=== PATIENT | female | born 1950 | race Caucasian/White ===

== ENCOUNTER → 2018-04-22 15:02 | Outpatient (REF) | payer MEDICARE, SELFPAY ==
[2018-04-22 19:04] LABS: ALT 31 U/L (12-78); AST 22 U/L (15-37); Albumin 3.9 g/dL (3.4-5.0); Alkaline Phosphatase 69 U/L (46-116); Anion Gap 10.6 mmol/L (3-11); BUN 19 mg/dL (7-18); Bilirubin, Total 0.4 mg/dL (0.2-1.0); CO2 23.4 mmol/L (21.0-32.0); CREATININE 0.88 mg/dL (0.55-1.02); Calcium 9.2 mg/dL (8.5-10.1); Chloride 103 mmol/L (98-107); Glucose 84 mg/dL (70-100); Potassium 4.4 mmol/L (3.5-5.1); Sodium 137 mmol/L (136-145); Total Protein 7.3 g/dL (6.4-8.2)
== END ==
LOC: NCHCN 15:02
PROVIDERS: PCP Nurse Practitioner Family; Visit Provider Nurse Practitioner Family
DX: R94.4 Abnormal results of kidney function studies (principal)
CPT/HCPCS: 80053

== ENCOUNTER 2019-04-22 09:26 | Outpatient (CLI) | payer MEDICARE, SELFPAY ==
[2019-04-22 10:43] LABS: Anion Gap 8.8 mmol/L (3-11); BUN 21 mg/dL (7-18); CO2 26.2 mmol/L (21.0-32.0); CREATININE 0.96 mg/dL (0.55-1.02); Calcium 8.9 mg/dL (8.5-10.1); Chloride 103 mmol/L (98-107); Estimated GFR 57.63 (mL/min/1.73m2); Glucose 87 mg/dL (70-100); Potassium 4.4 mmol/L (3.5-5.1); Sodium 138 mmol/L (136-145)
== END 2019-04-22 09:46 ==
PROVIDERS: PCP Family Medicine; Visit Provider Family Medicine
DX: I10 Essential (primary) hypertension (principal)
CPT/HCPCS: 36415; 80048

== ENCOUNTER 2019-07-29 08:10 | Outpatient (REF) | payer MEDICARE, SELFPAY ==
[2019-07-29 15:35] LABS: Calculated LDL 97 mg/dL; Cholesterol 196 mg/dL (50-200); HDL Cholesterol 77 mg/dL (40-60); Triglyceride 112 mg/dL (30-150)
== END 2019-07-29 08:30 ==
LOC: NCHCN 08:10
PROVIDERS: PCP Family Medicine; Visit Provider Family Medicine
DX: E78.5 Hyperlipidemia, unspecified (principal)
CPT/HCPCS: 80061

== ENCOUNTER 2020-04-26 08:45 | Outpatient (REF) | payer MEDICARE, SELFPAY ==
[2020-04-26 21:47] LABS: Anion Gap 6.8 mmol/L (3-11); BUN 13 mg/dL (7-18); CO2 29.2 mmol/L (21.0-32.0); CREATININE 0.83 mg/dL (0.55-1.02); Calcium 8.9 mg/dL (8.5-10.1); Chloride 105 mmol/L (98-107); Glucose 81 mg/dL (74-106); Potassium 4.5 mmol/L (3.5-5.1); Sodium 141 mmol/L (136-145)
== END 2020-04-26 09:05 ==
LOC: NCHCN 08:45
PROVIDERS: PCP Family Medicine; Visit Provider Family Medicine
DX: I10 Essential (primary) hypertension (principal)
CPT/HCPCS: 80048

== ENCOUNTER 2021-05-05 17:54 | Outpatient (REF) | payer MEDICARE, SELFPAY ==
[2021-05-05 14:51] LABS: Anion Gap 7.4 mmol/L (3-11); BUN 21 mg/dL (7-18); CO2 27.6 mmol/L (21.0-32.0); CREATININE 0.9 mg/dL (0.55-1.02); Chloride 105 mmol/L (98-107); Glucose 81 mg/dL (74-106); Potassium 4.7 mmol/L (3.5-5.1); Sodium 140 mmol/L (136-145)
== END 2021-05-05 17:55 | disposition home or self-care (01) ==
LOC: NCHCN 17:54
PROVIDERS: PCP Family Medicine; Visit Provider Family Medicine
DX: I10 Essential (primary) hypertension (principal)
CPT/HCPCS: 80048

== ENCOUNTER 2021-08-09 15:52 | Outpatient (REF) | payer MEDICARE, SELFPAY ==
[2021-08-11 14:55] LABS: COVID-19 RT-PCR UVMMC Result Negative (Negative)
== END 2021-08-09 15:53 | disposition home or self-care (01) ==
LOC: LBN 15:52
PROVIDERS: PCP Family Medicine; Visit Provider Family Medicine
DX: Z20.822 Contact with and (suspected) exposure to COVID-19 (principal); R09.81 Nasal congestion
CPT/HCPCS: U0003

== ENCOUNTER 2021-12-13 11:53 | Outpatient (REF) | payer MEDICARE, SELFPAY ==
[2021-12-15 12:56] LABS: COVID-19 RT-PCR UVMMC Result Negative (Negative)
== END 2021-12-13 11:54 | disposition home or self-care (01) ==
LOC: NCHCN 11:53
PROVIDERS: PCP Family Medicine; Visit Provider Family Medicine
DX: Z20.822 Contact with and (suspected) exposure to COVID-19 (principal); J01.90 Acute sinusitis, unspecified
CPT/HCPCS: U0003

== ENCOUNTER → 2022-01-10 16:30 | Outpatient (CLI) | payer MEDICARE, SELFPAY ==
--- NOTE | 2022-01-10 14:57 | DI.RAD_ITS ---
Exam(s) XR CHEST 2V PA LATERAL EXAM: XR CHEST 2V PA LATERAL CLINICAL HISTORY: SHORTNESS OF BREATH - R06.02 TECHNIQUE: 2D digital imaging was performed of the chest. Two images were obtained. PA and lateral views were obtained. COMPARISON: CR CHEST 2 VIEWS PA,LAT from 03/26/2017 FINDINGS: MEDIASTINUM: Normal. HEART: Normal. PULMONARY VASCULATURE: Normal. LUNGS: Clear. PLEURAL SPACE: No pleural effusion or pneumothorax. BONE:Within normal limits for the patient's age. OTHER FINDINGS:Normal. IMPRESSION: No acute pulmonary findings. DATA REPOSITORY: RADIATION DOSE DELIVERED:
== END ==
PROVIDERS: PCP Family Medicine; Visit Provider Family Medicine
DX: R06.02 Shortness of breath (principal)
CPT/HCPCS: 71046

== ENCOUNTER 2022-04-24 11:14 | Outpatient (REF) | payer MEDICARE, SELFPAY ==
[2022-04-24 15:40] LABS: Anion Gap 6.6 mmol/L (3-11); BUN 22 mg/dL (7-18); CO2 26.4 mmol/L (21.0-32.0); CREATININE 0.9 mg/dL (0.55-1.02); Calcium 9.1 mg/dL (8.5-10.1); Chloride 107 mmol/L (98-107); Glucose 94 mg/dL (74-106); Potassium 4.9 mmol/L (3.5-5.1); Sodium 140 mmol/L (136-145)
== END 2022-04-24 11:15 | disposition home or self-care (01) ==
LOC: NCHCN 11:14
PROVIDERS: PCP Family Medicine; Visit Provider Family Medicine
DX: I10 Essential (primary) hypertension (principal)
CPT/HCPCS: 80048

== ENCOUNTER 2022-10-18 18:52 | Outpatient (REF) | payer MEDICARE, SELFPAY ==
[2022-10-20 09:10] LABS: IgE <2 IU/mL (<158)
== END 2022-10-18 18:53 | disposition home or self-care (01) ==
LOC: LBN 18:52
PROVIDERS: PCP Family Medicine; Visit Provider Student in an Organized Health Care Education/Training Program
DX: J45.909 Unspecified asthma, uncomplicated (principal)
CPT/HCPCS: 82785; 85025

== ENCOUNTER 2022-10-24 12:08 | Outpatient (CLI) | payer MEDICARE, SELFPAY ==
[2022-10-24 12:03] LABS: Abs Immature Grans 0.02 10^3/uL (0.0-0.06); Absolute Basophil Count 0.05 10^3/uL (0.0-0.2); Absolute Eosinophil Count 0.27 10^3/uL (0.0-0.7); Absolute Lymphocyte Count 2.76 10^3/uL (1.2-3.4); Absolute Monocyte Count 0.52 10^3/uL (0.1-0.8); Absolute Neutrophil Count 3.62 10^3/uL (1.2-6.7); Basophils % 0.7; Eosinophils % 3.7; HCT 43.1 % (36.0-46.0); HGB 14.4 g/dL (11.2-15.7); Immature Grans % 0.3; Lymphocytes % 38.1; MCH 29.8 pg (27.0-33.0); MCHC 33.4 % (32.0-36.0); MCV 89 fL (80-95); MPV 9.6 fL (8.0-11.0); Monocytes % 7.2; Platelet Count 253 10^3/uL (130-400); RBC 4.83 10^6/uL (3.93-5.22); RDW 13.1 % (11.7-14.6); WBC 7.24 10^3/uL (4.4-10.8)
== END 2022-10-24 12:09 | disposition home or self-care (01) ==
PROVIDERS: PCP Family Medicine; Visit Provider Student in an Organized Health Care Education/Training Program
DX: J45.41 Moderate persistent asthma with (acute) exacerbation (principal)
CPT/HCPCS: 36415; 85025

== ENCOUNTER 2022-10-27 02:21 | Outpatient (CLI) | payer MEDICARE, SELFPAY ==
[2022-10-27] MEDS: Albuterol HFA 18 GM 200 PUFF INH IH (14:44)
[2022-10-27] MEDS: Inhaler, Assist Device 1 EACH MC (14:45)
--- NOTE | 2022-10-30 14:23 | W.PFT ---
Date of service: 10/27/22 Time of Service: 13:03 Pulmonary Function Test Result Requesting Provider Ayaka Indications: Asthma Interpretation Spirometry: There is no airflow limitation. There is no significant bronchodilator response. Lung Volumes: Normal lung volumes. Diffusion Capacity: Normal diffusion Airway Pressure: Normal airways resistance Impression Normal pulmonary function testing. Clinical Correlation therefore is recommended.
== END 2022-10-27 02:22 | disposition home or self-care (01) ==
LOC: RT 02:21
PROVIDERS: PCP Family Medicine; Visit Provider Student in an Organized Health Care Education/Training Program
DX: J45.41 Moderate persistent asthma with (acute) exacerbation (principal)
CPT/HCPCS: 94060; 94726; 94729

== ENCOUNTER 2022-12-03 07:08 | Emergency (ER) | payer MEDICARE, SELFPAY ==
[2022-12-03 07:12] VITALS: BP 154/79; PULSE 115; RESP 20; TEMP 37.4; O2SAT 98
--- NOTE | 2022-12-03 07:22 | ED.GENADUL_ITS ---
Discharge Plan Disposition Patient Disposition: Home Condition: Stable Discharge Details Clinical Impression: Acute streptococcal pharyngitis Primary Care Provider: Austen Mendez ED Provider: Estefania Valenzuela Home Meds and New Rx's Prescriptions: Continued atorvastatin [Lipitor] 20 mg tablet 20 mg PO QHS budesonide-formoterol [Symbicort] 160-4.5 mcg/actuation HFA aerosol inhaler 1 puff inhalation BID polyethylene glycol 3350 [Miralax] 17 gram/dose powder 17 g PO DAILY PRN trazodone 50 MG tablet 50 mg PO HS lisinopril 20 MG tablet 20 mg PO QAM sertraline 100 MG tablet 100 mg PO BID albuterol sulfate [Ventolin HFA] 8 GM HFA aerosol inhaler 8 g Inhalation PRN multivitamin 1 EACH capsule 1 tab PO QAM Glucosamine Sulf-Chondroitin 1 EACH capsule 1 cap PO QAM celecoxib 200 mg capsule 200 mg PO DAILY Patient Comments: TAKE ONE CAPSULE BY MOUTH EVERY DAY NEEDED FOR PAIN Discharge Instructions Instructions: Pharyngitis (ED), Strep Throat (ED) Additional Instructions: You tested positive for strep throat. You were given a Bicillin antibiotic injection for treatment of your strep throat today. Your COVID and influenza antigen tests today were negative. You can take 500 mg of Tylenol every 4 hours and 400 to 600 mg of ibuprofen every 6 hours as needed for pain or fever. Hold on taking the Celebrex while taking the ibuprofen. Drink plenty of fluids and get plenty of rest. Follow-up with your primary care doctor in 1 week. Return to the emergency department with any worsening or new concerning symptoms such as persistent fevers, worsening sore throat, difficulty swallowing or any other concerns. Discharge Data Discharge Date/Time-TO BE ENTERED AT DEPARTURE: 12/03/22 08:04 Discharge Physician: Estefania Valenzuela Medical Decision Making 72-year-old female presents with sore throat for the past 2 days now also with frontal headache, body aches, chills and difficulty swallowing. Heart rate 115. Oral temp on my assessment 100. She has normal respiratory rate and oxygen saturation. Patient appears uncomfortable but nontoxic. She has bilateral tonsillar and uvular edema and erythema but no evidence of exudates and uvula is midline without obvious evidence of peritonsillar abscess. She does have bilateral anterior cervical and submandibular lymphadenopathy. Lungs clear throughout. Abdomen soft and nontender without hepatosplenomegaly. Rapid strep done by nursing on arrival and POSITIVE. Her POC rapid antigen COVID and influenza tests were negative. History and presentation does appear most likely consistent with strep at this time and do not suspect mononucleosis at this time or indication for COVID or influenza PCR as sore throat is her predominant symptom and strep POSITIVE. She has no evidence of unilateral edema or peritonsillar abscess so I do not see an indication for labs or imaging of the neck at this time. Patient is agreeable with Bicillin injection. We will also give a dose of Tylenol P.O. for pain and fever relief and Decadron P.O. for pain relief. Patient is advised to hold on her Celebrex while taking ibuprofen for fever and pain relief. Advised on importance of increasing fluids and rest. Advised to follow up with the primary care doctor for re-evaluation. Advised to return here immediately if she develops any worsening symptoms including difficulty swallowing, unilateral worsening pain, persistent fevers or any other concerns for reevaluation and consideration for imaging at that time. Medical Records Medical records reviewed: Yes I reviewed the patient's medical records. Lab Data Lab results reviewed: Yes I reviewed the patient's lab results. Labs: Strep test POSITIVE POC rapid COVID and influenza A & B tests NEGATIVE HPI General Mode of arrival: ambulatory . Date/Time Provider Initiated Documentation: 12/03/22 07:20 . Limitations to Documentation: no limitations . Information obtained by: patient . HPI Narrative: Patient is a 72-year-old female with a history of hypertension, hyperlipidemia, asthma, migraines and osteoarthritis presents for sore throat for the past 2 days now also with headache, body aches, chills. Patient states she last took Tylenol for pain relief at 10 PM last night. She states she has felt feverish but has not taken her temperature. She denies any known sick contacts. She states her headache is mainly within her forehead. She denies any ear pain, nasal congestion, runny nose, cough, difficulty breathing, abdominal pain, vomiting or diarrhea. She states she has not taken any ibuprofen because she takes Celebrex. Related Data Home Medications Medication Instructions Recorded Confirmed albuterol sulfate 90 mcg/actuation 8 g inhalation PRN 12/20/13 12/03/22 aerosol inhaler (Ventolin HFA) glucosamine sulfate dipotassium Cl 1 cap PO QAM 12/20/13 12/03/22 500 mg-chondroitin 400 mg capsule (Glucosamine Sulfate 2 KCL-Chondroitin) lisinopril 20 mg tablet 20 mg PO QAM 12/20/13 12/03/22 multivitamin 1 tab PO QAM 12/20/13 12/03/22 sertraline 100 mg tablet 100 mg PO BID 12/20/13 12/03/22 trazodone 50 mg tablet 50 mg PO HS 12/20/13 12/03/22 budesonide-formoterol HFA 160 1 puff inhalation BID 06/13/22 12/03/22 mcg-4.5 mcg/actuation aerosol inhaler (Symbicort) polyethylene glycol 3350 17 17 g PO DAILY PRN 06/13/22 12/03/22 gram/dose oral powder (Miralax) atorvastatin 20 mg tablet (Lipitor) 20 mg PO QHS 10/18/22 12/03/22 celecoxib 200 mg capsule 200 mg PO DAILY 12/03/22 12/03/22 Allergies Allergy/AdvReac Type Severity Reaction Status Date / Time petrolatum,white AdvReac Unknown Verified 12/03/22 07:16 [From Petroleum Jelly] some perfumes AdvReac Unknown Uncoded 12/03/22 07:16 General Stated Complaint: Sorethroat ABDIRAHMAN: 4 Review of Systems All systems reviewed & are unremarkable except as noted in HPI and below Constitutional Constitutional: Reports as per HPI, Reports body ache(s), Reports chills, Denies fever(s) and Reports headache(s) Eyes Eyes: Denies blurry vision ENT Ears, Nose, Mouth, and Throat: Denies dizziness, Reports headache(s), Reports sore throat and Denies throat swelling Cardiovascular Cardiovascular: Denies chest pain and Denies dyspnea Respiratory Respiratory: Denies cough and Denies dyspnea Gastrointestinal Gastrointestinal: Denies abdominal pain, Denies diarrhea and Denies vomiting Genitourinary Genitourinary: Denies hematuria and Denies dysuria Musculoskeletal Musculoskeletal: Denies back pain and Denies numbness Integumentary/Breasts Skin/Breast: Denies lesions and Denies rash Neurologic Neurologic: Denies dizziness, Reports headache(s), Denies localized weakness and Denies numbness Allergic/Immunologic Allergic/Immunologic: Denies throat swelling PFSH All Active Problems (Updated 12/03/22 @ 07:49 by Estefania Valenzuela DO) Acute streptococcal pharyngitis (Acute) Asthma (Chronic) BMI 39.0-39.9,adult (Acute) Osteoarthritis (Chronic) Migraine (Chronic) Hyperlipidemia (Acute) Thoracic outlet syndrome (Acute) Fibroids (Acute) Uterus. Left ventricular hypertrophy (Acute) Hypertensive disorder (Chronic) Moderate persistent allergic asthma with acute exacerbation (Acute) Medical History (Updated 12/03/22 @ 07:49 by Estefania Valenzuela DO) Parks's palsy Nephrolithiasis Social History Smoking/Tobacco Use Status: Never Smoking risk assessment performed?: Yes Alcohol Intake: never Drug use: Never Substance use type: does not use Do you feel safe at home: Yes Do you feel safe in your relationship?: Yes Exam Const General: cooperative, uncomfortable and no acute distress Orientation: alert, awake and oriented x3 HENMT Head: normal to inspection Ears: hearing grossly normal bilaterally, external ears normal and TM's normal bilaterally Face and sinus: normal facial exam and sinus tenderness frontal and maxillary Mouth: oral mucosae normal Throat: uvula midline, no peritonsillar masses and posterior oropharynx abnormal edema and erythema; no exudates Eyes General: appearance normal, both eyes and all related structures Pupils: PERRL EOM: EOM intact bilaterally Neck Neck: normal visual inspection, trachea midline, supple, no anterior neck swelling and lymphadenopathy (bilateral anterior cervical/submandibular) Chest Chest: normal inspection of the chest and no tenderness Resp Effort & Inspection: normal respiratory effort and able to speak in complete sentences Auscultation: clear to auscultation bilaterally Cardio Rate: regular rate Rhythm: regular rhythm GI Inspection: normal to inspection Palpation: soft, not firm, no hepatosplenomegaly, not rigid and nontender Auscultation: hypoactive bowel sounds Skin General skin exam: no rashes or lesions noted Neuro General: patient alert, patient awake and patient oriented x3 Cognition: normal cognition Speech: speech normal Motor: muscle tone normal throughout Sensory Exam: no sensory deficits noted Extrem General: full ROM and no edema Psych Appearance: grossly normal Mental Status: mental status grossly normal Speech and Movement: speech and movement normal Affect: normal affect Course Vital Signs Vital signs: Vital Signs Temperature 99.4 F 12/03/22 07:12 Pulse 115 H 12/03/22 07:12 Respiratory Rate 20 12/03/22 07:12 Blood Pressure 154/79 H 12/03/22 07:12 Pulse Oximetry 98 12/03/22 07:12 Temperature 99.4 F 12/03/22 07:12 Temperature Source Oral 12/03/22 07:12 Pulse 115 H 12/03/22 07:12 Respiratory Rate 20 12/03/22 07:12 Respiratory Effort Normal, Non-Labored 12/03/22 07:15 Blood Pressure 154/79 H 12/03/22 07:12 Pulse Oximetry 98 12/03/22 07:12 Oxygen Delivery Method Room Air 12/03/22 07:12 Oxygen Flow Rate 0 12/03/22 07:12
[2022-12-03 07:47] VITALS: TEMP 37.8
[2022-12-03] MEDS: Acetaminophen 500 MG TAB 1000 MG PO (07:56)
[2022-12-03] MEDS: Dexamethasone 10 MG/ML VIAL PO (07:57)
== END 2022-12-03 08:04 | disposition home or self-care (01) ==
PROVIDERS: Emergency Provider Physician Assistant; PCP Family Medicine
DX: J02.0 Streptococcal pharyngitis (principal); R59.0 Localized enlarged lymph nodes; I10 Essential (primary) hypertension; J45.909 Unspecified asthma, uncomplicated; Z79.51 Long term (current) use of inhaled steroids
CPT/HCPCS: 87880; 96372; 99284; J0561; J1100

== ENCOUNTER 2023-01-03 10:34 | Emergency (ER) | payer MEDICARE, SELFPAY ==
[2023-01-03 10:33] VITALS: BP 113/57; PULSE 78; RESP 16; TEMP 36.6; O2SAT 98
--- NOTE | 2023-01-03 10:45 | DI.US_ITS ---
Exam(s) US LOWER EXTREMITY VENOUS RT EXAM: US LOWER EXTREMITY VENOUS RT CLINICAL HISTORY: popliteal and knee pain TECHNIQUE: Right lower extremity venous ultrasound performed using grayscale, color-flow, and spectr al Doppler analysis. COMPARISON: No exams were available for comparison FINDINGS: The right common femoral, femoral and popliteal veins demonstrate normal compressibility, augmentatio n, and color Doppler. The posterior tibial veins are patent. The saphenofemoral junction is unremark able. There is no evidence of a Loera cyst. The soft tissues are unremarkable. IMPRESSION: 1. No evidence of a right lower extremity DVT. 2. Findings were discussed with the emergency department on the date of the examination. DATA REPOSITORY:
--- NOTE | 2023-01-03 10:45 | DI.RAD_ITS ---
Exam(s) XR KNEE RT 3V AP,LAT,JOON EXAM: XR KNEE RT 3V AP,LAT,JOON CLINICAL HISTORY: right knee. TECHNIQUE: 2D digital imaging was performed of the right knee. Right views obtained. AP, lateral an d PA tunnel views were obtained. COMPARISON: CR RIGHT KNEE 3 VIEWS from 04/16/2013 FINDINGS: BONES: No acute fracture is present. No bony destructive lesion is seen. JOINTS: There is marked narrowing of the patellofemoral joint. There is periarticular spurring invol ving the lateral femoral tibial and patellofemoral joint. No joint effusion is seen. SOFT TISSUE: Normal. IMPRESSION: Marked degenerative changes of the knee particularly in the patellofemoral joint. DATA REPOSITORY: RADIATION DOSE DELIVERED:
[2023-01-03] MEDS: oxyCODONE 5 MG TAB PO (12:10)
--- NOTE | 2023-01-05 08:44 | ED.GENADUL_ITS ---
Discharge Plan Disposition Patient Disposition: Home Discharge Details Clinical Impression: Acute knee pain Primary Care Provider: Austen Mendez ED Provider: Kathleen Daugherty Home Meds and New Rx's Prescriptions: New oxycodone 5 mg capsule 5 mg PO BID PRNQty: 7 0RF Continued atorvastatin [Lipitor] 20 mg tablet 20 mg PO QHS Spiriva Respimat 1.25 mcg/actuation mist 2 puff inhalation DAILY Qty: 4 12RF budesonide-formoterol [Symbicort] 160-4.5 mcg/actuation HFA aerosol inhaler 1 puff inhalation BID polyethylene glycol 3350 [Miralax] 17 gram/dose powder 17 g PO DAILY PRN trazodone 50 MG tablet 50 mg PO HS lisinopril 20 MG tablet 20 mg PO QAM sertraline 100 MG tablet 100 mg PO BID albuterol sulfate [Ventolin HFA] 8 GM HFA aerosol inhaler 8 g Inhalation PRN multivitamin 1 EACH capsule 1 tab PO QAM Glucosamine Sulf-Chondroitin 1 EACH capsule 1 cap PO QAM celecoxib 200 mg capsule 200 mg PO DAILY Patient Comments: TAKE ONE CAPSULE BY MOUTH EVERY DAY NEEDED FOR PAIN Discharge Instructions Instructions: Knee Pain (ED) Additional Instructions: Please follow-up with orthopedics Use your knee brace as needed Use the walker for ambulation Take Tylenol as needed for pain, you may also apply Voltaren gel topically, this is [id number] Oxycodone is addictive, do not operate your vehicle for 8 hours after taking this medication and use it very sparingly Please return earlier should you have swelling, worsening pain, fever Referrals: Demetrius Branch MD [ [facility] STAFF PHYSICIAN] - Austen Mendez [Primary Care Provider] - Discharge Data Discharge Date/Time-TO BE ENTERED AT DEPARTURE: 01/03/23 12:44 Medical Decision Making 72-year-old female who presents with right knee pain, secondary to age and comorbidities a Right knee x-ray was ordered in addition to an ultrasound, ultrasound does not show evidence of any acute pathology X-ray per radiology interpretation my review shows evidence of significant patellofemoral degenerative changes Patient placed in a splint, given a walker, referred to orthopedics Return precautions reviewed and patient expressed understanding Medical Records Medical records reviewed: Yes I reviewed the patient's medical records. Lab Data Lab results reviewed: Yes I reviewed the patient's lab results. HPI General Date/Time Provider Initiated Documentation: 01/03/23 10:39 . HPI Narrative: This 72-year-old female presents with right knee pain with tearing sensation after stepping over a threshold this morning. She states her knees have bothered her for an extended period of time. She denies any swelling or red ness. She states the pain is exacerbated with planting her foot on the ground. Related Data Home Medications Medication Instructions Recorded Confirmed albuterol sulfate 90 mcg/actuation 8 g inhalation PRN 12/20/13 01/03/23 aerosol inhaler (Ventolin HFA) glucosamine sulfate dipotassium Cl 1 cap PO QAM 12/20/13 01/03/23 500 mg-chondroitin 400 mg capsule (Glucosamine Sulfate 2 KCL-Chondroitin) lisinopril 20 mg tablet 20 mg PO QAM 12/20/13 01/03/23 multivitamin 1 tab PO QAM 12/20/13 01/03/23 sertraline 100 mg tablet 100 mg PO BID 12/20/13 01/03/23 trazodone 50 mg tablet 50 mg PO HS 12/20/13 01/03/23 budesonide-formoterol HFA 160 1 puff inhalation BID 06/13/22 01/03/23 mcg-4.5 mcg/actuation aerosol inhaler (Symbicort) polyethylene glycol 3350 17 17 g PO DAILY PRN 06/13/22 01/03/23 gram/dose oral powder (Miralax) atorvastatin 20 mg tablet (Lipitor) 20 mg PO QHS 10/18/22 01/03/23 celecoxib 200 mg capsule 200 mg PO DAILY 12/03/22 01/03/23 tiotropium bromide 1.25 2 puff inhalation DAILY #4 grams 12/18/22 01/03/23 mcg/actuation mist for inhalation (Spiriva Respimat) oxycodone 5 mg capsule 5 mg PO BID PRN #7 caps 01/03/23 Previous Rx's Medication Instructions Recorded tiotropium bromide 1.25 2 puff inhalation DAILY #4 grams 12/18/22 mcg/actuation mist for inhalation (Spiriva Respimat) oxycodone 5 mg capsule 5 mg PO BID PRN #7 caps 01/03/23 Allergies Allergy/AdvReac Type Severity Reaction Status Date / Time hardeep aguilar AdvReac Unknown Verified 12/18/22 10:22 [From Petroleum Jelly] some perfumes AdvReac Unknown Uncoded 12/18/22 10:22 General Stated Complaint: Orthopedic ABDIRAHMAN: 4 PFSH All Active Problems (Updated 01/03/23 @ 12:37 by SIGIFREDO Morales) Acute knee pain (Acute) Asthma (Chronic) BMI 39.0-39.9,adult (Acute) Osteoarthritis (Chronic) Migraine (Chronic) Hyperlipidemia (Acute) Thoracic outlet syndrome (Acute) Fibroids (Acute) Uterus. Left ventricular hypertrophy (Acute) Hypertensive disorder (Chronic) Moderate persistent allergic asthma with acute exacerbation (Acute) Medical History (Updated 01/03/23 @ 12:37 by SIGIFREDO Morales) Parks's palsy Nephrolithiasis Social History Smoking/Tobacco Use Status: Never Smoking risk assessment performed?: Yes Alcohol Intake: never Drug use: Never Substance use type: does not use Do you feel safe at home: Yes Do you feel safe in your relationship?: Yes Exam Resp Effort & Inspection: normal respiratory effort Auscultation: clear to auscultation bilaterally Other: lungs clear to auscultation no respiratory distress Cardio Other: Cardiac rate rhythm regular distal pulses intact Neuro General: patient alert and patient oriented x3 Extrem Other: Right knee with tenderness, mild swelling without obvious effusion, no calf swelling or tenderness, neurovascularly intact, no joint laxity Course Vital Signs Vital signs: Vital Signs Temperature 36.6 C 01/03/23 10:33 Pulse 78 01/03/23 10:33 Respiratory Rate 16 01/03/23 10:33 Blood Pressure 113/57 L 01/03/23 10:33 Pulse Oximetry 98 01/03/23 10:33 Temperature 36.6 C 01/03/23 10:33 Pulse 78 01/03/23 10:33 Respiratory Rate 16 01/03/23 10:33 Respiratory Effort Normal 01/03/23 10:41 Blood Pressure 113/57 L 01/03/23 10:33 Blood Pressure Position Sitting 01/03/23 10:33 Pulse Oximetry 98 01/03/23 10:33 Oxygen Delivery Method Room Air 01/03/23 10:33 Oxygen Flow Rate 0 01/03/23 10:33 Pain Level 4 01/03/23 13:03
== END 2023-01-03 12:44 | disposition home or self-care (01) ==
PROVIDERS: Emergency Provider Physician Assistant; PCP Family Medicine
DX: M25.561 Pain in right knee (principal); J45.909 Unspecified asthma, uncomplicated; I10 Essential (primary) hypertension; Z79.51 Long term (current) use of inhaled steroids; X50.9XXA Other and unspecified overexertion or strenuous movements or postures, initial encounter; Y99.8 Other external cause status
CPT/HCPCS: 73562; 99284; 93971

== ENCOUNTER → 2023-01-25 14:48 | Outpatient (BNVA) | payer MEDICARE, SELFPAY | PROVIDERS: PCP Family Medicine; Referring Provider Family Medicine; Visit Provider Physician Assistant | DX: M17.11 Unilateral primary osteoarthritis, right knee (principal) | CPT/HCPCS: 99213 ==

== ENCOUNTER 2023-01-29 12:00 | Outpatient (CLI) | payer MEDICARE, SELFPAY ==
--- NOTE | 2023-01-29 11:45 | DI.RAD_ITS ---
Exam(s) XR KNEE RT 1V XR STANDING ALIGNMENT EXAM: XR STANDING ALIGNMENT CLINICAL HISTORY: right knee DJD. TECHNIQUE: 2D digital imaging was performed. Standing AP views were performed from the pelvis throu gh the ankles. COMPARISON: CR RIGHT HIP COMPLETE from 03/29/2012 CR XR KNEE RT 3V AP,LAT,JOON from 01/03/2023 CR XR KNEE RT 1V from 01/29/2023 FINDINGS: BONES: No acute fracture is present. No bony destructive lesion is seen. Leg length discrepancy: JOINTS: Knees: Femoral tibial joint spaces are maintained. Severe narrowing patellofemoral joint of the right knee.. The ankle joints are unremarkable. Hips: Bilateral hip prostheses, unremarkable. SOFT TISSUE: Normal. IMPRESSION: Severe degenerative changes of the patellofemoral joint of the right knee.. No significant leg length discrepancy. DATA REPOSITORY: RADIATION DOSE DELIVERED:
== END 2023-01-29 12:01 | disposition home or self-care (01) ==
LOC: DIORS 12:00
PROVIDERS: PCP Family Medicine; Referring Provider Family Medicine; Visit Provider Student in an Organized Health Care Education/Training Program
DX: M17.11 Unilateral primary osteoarthritis, right knee (principal)
CPT/HCPCS: 99215; 73560; 77073

== ENCOUNTER 2023-02-08 03:14 | Outpatient (CLI) | payer MEDICARE, SELFPAY ==
[2023-02-08 13:59] LABS: HCT 43.2 % (36.0-46.0); HGB 14.4 g/dL (11.2-15.7); MCH 30.5 pg (27.0-33.0); MCHC 33.3 % (32.0-36.0); MCV 92 fL (80-95); MPV 9.9 fL (8.0-11.0); Platelet Count 252 10^3/uL (130-400); RBC 4.72 10^6/uL (3.93-5.22); RDW 12.4 % (11.7-14.6); RDW-SD 42.2 fL; WBC 8.13 10^3/uL (4.4-10.8)
[2023-02-08 14:35] LABS: Anion Gap 6.6 mmol/L (3-11); BUN 17 mg/dL (7-18); CO2 28.4 mmol/L (21.0-32.0); Calcium 9.3 mg/dL (8.5-10.1); Chloride 103 mmol/L (98-107); Estimated GFR 59.49 (mL/min/1.73m2); Glucose 87 mg/dL (74-106); Potassium 3.7 mmol/L (3.5-5.1); Sodium 138 mmol/L (136-145)
== END 2023-02-08 03:15 | disposition home or self-care (01) ==
LOC: LBO 03:15
PROVIDERS: PCP Family Medicine; Visit Provider Student in an Organized Health Care Education/Training Program
DX: M25.561 Pain in right knee (principal); M17.11 Unilateral primary osteoarthritis, right knee; Z01.818 Encounter for other preprocedural examination; Z01.812 Encounter for preprocedural laboratory examination
CPT/HCPCS: 36415; 80048; 85027

== ENCOUNTER 2023-02-21 08:53 | Day surgery (SDC) | payer MEDICARE, SELFPAY ==
[2023-02-21] VITALS (11 sets, daily range): BP systolic 95–152; BP diastolic 35–82; PULSE 59–75; RESP 15–20; TEMP 36.3–36.5; O2SAT 94–98; BMI 39.0
[2023-02-21] MEDS: Gabapentin 300 MG CAP PO (09:43)
[2023-02-21] MEDS: Celecoxib 200 MG CAP 400 MG PO (09:43)
[2023-02-21] MEDS: Acetaminophen 500 MG TAB 1000 MG PO (09:43)
[2023-02-21] MEDS: Lactated Ringers 1,000 ML 80 ML IV (10:15)
--- NOTE | 2023-02-21 10:26 | W.ANESPRE ---
General Info Date of Service Date Performed: 02/21/23 Height: 5 ft 2 in Weight: 96.9 kg Body Mass Index (BMI): 39.0 Surgical Procedure: Operation Date: 02/21/23 11:40 Proposed Procedure Side Surgeon p Knee Total Arthroplasty w/OrthAlign, Cementless CR Right Demetrius Branch MD Meds Allergies and Home Medications Allergies Allergy/AdvReac Type Severity Reaction Status Date / Time petrolatum,white AdvReac Unknown Verified 02/21/23 09:25 [From Petroleum Jelly] some perfumes AdvReac Unknown Other (See Uncoded 02/21/23 09:25 Comment) Home Medication Medication Instructions Recorded albuterol sulfate 90 mcg/actuation 8 g inhalation PRN 12/20/13 aerosol inhaler (Ventolin HFA) glucosamine sulfate dipotassium Cl 1 cap PO QAM 12/20/13 500 mg-chondroitin 400 mg capsule (Glucosamine Sulfate 2 KCL-Chondroitin) lisinopril 20 mg tablet 20 mg PO QAM 12/20/13 multivitamin 1 tab PO QAM 12/20/13 sertraline 100 mg tablet 100 mg PO BID 12/20/13 trazodone 50 mg tablet 50 mg PO HS 12/20/13 polyethylene glycol 3350 17 17 g PO DAILY PRN 06/13/22 gram/dose oral powder (Miralax) atorvastatin 20 mg tablet (Lipitor) 20 mg PO QHS 10/18/22 tiotropium bromide 1.25 2 puff inhalation DAILY #4 grams 12/18/22 mcg/actuation mist for inhalation (Spiriva Respimat) acetaminophen 500 mg tablet 1,000 mg PO TID #90 tabs 02/21/23 aspirin 81 mg tablet,delayed 81 mg PO BID #60 tabs 02/21/23 release celecoxib 200 mg capsule 200 mg PO BID #60 caps 02/21/23 dexamethasone 4 mg tablet 4 mg PO DAILY #2 tabs 02/21/23 gabapentin 300 mg capsule 300 mg PO QHS #14 caps 02/21/23 oxycodone 5 mg tablet 5 mg PO Q4H PRN pain #20 tabs 02/21/23 pantoprazole 40 mg tablet,delayed 40 mg PO DAILY #30 tabs 02/21/23 release Current Visit Medications: Current Medications Generic Name Dose Route Start Last Admin Trade Name Freq PRN Reason Stop Dose Admin Acetaminophen 1,000 mg 02/21/23 06:00 02/21/23 09:43 Acetaminophen 500 Mg Tab PO 02/21/23 18:00 1,000 mg PREOP ALEX Administration Acetaminophen 1,000 mg 02/21/23 07:24 Acetaminophen 500 Mg Tab PO 03/23/23 07:23 TID PRN PRN Analgesia Celecoxib 400 mg 02/21/23 06:00 02/21/23 09:43 Celecoxib 200 Mg Cap PO 02/21/23 18:00 400 mg PREOP ALEX Administration Docusate Sodium 100 mg 02/21/23 07:24 Docusate Sodium 100 Mg Cap PO 03/23/23 07:23 BID PRN PRN Constipation Gabapentin 300 mg 02/21/23 06:00 02/21/23 09:43 Gabapentin 300 Mg Cap PO 02/21/23 18:00 300 mg PREOP ALEX Administration Tranexamic Acid 1,000 mg/ 60 mls @ 360 mls/hr 02/21/23 06:00 Sodium Chloride IVPB 02/21/23 18:00 PREOP ALEX Ringer's Solution 1,000 mls @ 80 mls/hr 02/21/23 06:00 02/21/23 10:15 IV 03/22/23 23:59 80 mls/hr [facility] Administration Cefazolin Sodium/Dextrose 2 gm in 50 mls @ 100 mls/hr 02/21/23 06:00 Ancef Duplex IVPB 02/21/23 16:00 PREOP ALEX IV Miscellaneous Supplies 1 each 02/21/23 06:00 Iv Access IV 03/22/23 23:59 DIRECTED ALEX Ondansetron HCl 4 mg 02/21/23 07:24 Ondansetron 4 Mg/2 Ml Vial IVP 03/23/23 07:23 Q6H PRN PRN Nausea Oxycodone HCl 0 mg 02/21/23 07:24 Oxycodone 5 Mg Tab PO 03/23/23 07:23 Q3H PRN PRN Pain Polyethylene Glycol 17 gm 02/21/23 07:24 Polyethylene Glycol 3350 17 Gm Packet PO 03/23/23 07:23 BID PRN PRN Constipation Sodium Chloride 0 ml 02/21/23 06:00 Normal Saline Flush 10 Ml Syr IV 03/22/23 23:59 PRN PRN Sodium Chloride 0 ml 02/21/23 06:00 Normal Saline 10 Ml Vial IJ 03/22/23 23:59 DIRECTED PRN Sterile Water 0 ml 02/21/23 06:00 Water,Injection,Sterile 10 Ml Vial IJ 03/22/23 23:59 DIRECTED PRN PFSH Active Problems Active Problems: Problem Status Onset Code Moderate persistent allergic asthma with acute exacerbation J45.41 Hypertensive disorder I10 Left ventricular hypertrophy I51.7 Fibroids D21.9 Thoracic outlet syndrome G54.0 Hyperlipidemia E78.5 Migraine G43.909 Osteoarthritis M19.90 BMI 39.0-39.9,adult Z68.39 Asthma J45.909 Osteoarthritis of right knee M17.11 Medical History Medical History (Updated 02/21/23 @ 09:34 by Juli Gunderson RN) Parks's palsy Fracture of right wrist Nephrolithiasis Medical History Comments:: 02/21/23: pt reports she cannot lie flat, pt reports she is unable to breathe if she lies flat. Surgical History Surgical History (Updated 02/21/23 @ 09:34 by Juli Gunderson RN) History of total hip replacement Right History of total left hip replacement Hx of cholecystectomy Tobacco Smoking/Tobacco Use Status: Never Alcohol Alcohol Intake: never Substance Use Substance use: Never Substance use type: does not use Vital Signs and Lab Results Vital Signs Most Recent Vital Signs in EMR: Most Recent Vital Signs Temp Pulse Resp BP Pulse Ox 36.3 C L 75 18 148/78 H 98 02/21/23 09:13 02/21/23 09:13 02/21/23 09:13 02/21/23 09:13 02/21/23 09:13 Lab Results Blood Type / Crossmatch: No Data to Display Complete Blood Count: White Blood Count 8.13 10^3/uL (4.4-10.8) 02/08/23 13:40 Red Blood Count 4.72 10^6/uL (3.93-5.22) 02/08/23 13:40 Hemoglobin 14.4 g/dL (11.2-15.7) 02/08/23 13:40 Hematocrit 43.2 % (36.0-46.0) 02/08/23 13:40 Platelet Count 252 10^3/uL (130-400) 02/08/23 13:40 Complete Metabolic Panel: Sodium 138 mmol/L (136-145) 02/08/23 13:40 Potassium 3.7 mmol/L (3.5-5.1) 02/08/23 13:40 Chloride 103 mmol/L (98-107) 02/08/23 13:40 Carbon Dioxide 28.4 mmol/L (21.0-32.0) 02/08/23 13:40 BUN 17 mg/dL (7-18) 02/08/23 13:40 Creatinine 1.0 mg/dL (0.55-1.02) 02/08/23 13:40 Est GFR (CKD-EPI 2020) 59.49 (mL/min/1.73m2) 02/08/23 13:40 Calcium 9.3 mg/dL (8.5-10.1) 02/08/23 13:40 Glucose 87 mg/dL (74-106) 02/08/23 13:40 Liver Function Panel: No Data to Display Coagulation Panel: No Data to Display Cardiac Panel: No Data to Display Arterial Blood Gas: No Data to Display Venous Blood Gas: No Data to Display Pancreas Panel: No Data to Display Thyroid Panel: No Data to Display Infectious Disease: No Data to Display Blood Cultures: No Data to Display Toxicology Panel: No Data to Display Imaging and Studies Imaging and Studies Study information below may be from another EMR and interpreted by another provider. Please see original notes in EMR for more complete details. Echocardiogram Summary: 05/09/2017: Summary: 1. Left ventricle: The cavity size was normal. Wall thickness was increased in a pattern of mild LVH. Systolic function was normal. The estimated ejection fraction was 60-65%. Wall motion was normal; there were no regional wall motion abnormalities. Diastolic parameters were normal for age. 2. Aortic valve: Valve mobility was trivially restricted. There was very mild stenosis. There was trivial regurgitation. Mean gradient (S): 6mm Hg. Valve area (VTI): 1.5cm^2. 3. Right ventricle: The cavity size was normal. Wall thickness was normal. Systolic function was normal. 4. Pulmonary arteries: Pulmonary systolic pressure was within the normal range, in the range of 25mm Hg to 30mm Hg. Pulmonary Function Summary: 10/30/2022: Pulmonary Function Test Result Requesting Provider Duchene Indications: Asthma Interpretation Spirometry: There is no airflow limitation. There is no significant bronchodilator response. Lung Volumes: Normal lung volumes. Diffusion Capacity: Normal diffusion Airway Pressure: Normal airways resistance Impression Normal pulmonary function testing. Clinical Correlation therefore is recommended. Anesthesia Assessment and Plan Anesthesia History Personal History: No History of Anesthesia Complications Family History: No Family History of Anesthesia Complications Exercise Tolerance Exercise Tolerance: Metabolic Equivalents>4 Pertinent Negatives Pertinent Negatives: No Symptoms of GERD, No Major Cardiovascular Symptoms or Complaints and No Major Pulmonary Symptoms or Complaints Cardiac & Pulmonary Exam Cardiac Exam: Normal S1/S2 Heart Sounds Pulmonary Exam: Clear Bilateral Breath Sounds Implantable Cardiac Device Does patient have a Pacemaker or an ICD?: No Airway Exam Known Difficult Airway: No Mallampati Class: 2 Mouth Opening: Normal (> 3cm) Thyromental Distance: Greater than 3 cm Neck Range of Motion: Full ROM Neck Circumference: Normal Teeth Condition: Normal Dentition ASA Classification ASA Score: ASA 2 Emergency Case?: No NPO Status NPO Status: NPO Clears >2 hours, Solids >8 hours Anesthesia Plan Resuscitation Status: Full Code Anesthesia Technique: Spinal Anesthesia Airway Planned: Natural Airway Pain Management: Surgeon and patient request nerve block Monitors Used: Standard Monitors
[2023-02-21] MEDS: ceFAZolin 2 GM/50 ML BAG IVPB (12:03)
--- NOTE | 2023-02-21 13:05 | W.ANESNERVE ---
Nerve Block Single Injection Procedure Date and Time Date Performed: 02/21/23 Procedure Start: 11:50 Location Where Procedure Performed Procedure Location: Day Surgery Unit Reason Performed: Postoperative Analgesia Requesting Provider: Demetrius Branch Timeout Performed Timeout Performed: Yes Monitoring Used ECG, Blood Pressure and SpO2 Sterility Sterility: Hand Hygiene, Surgical Cap, Surgical Mask, Sterile Gloves, Eye Protection and Chlorhexidine Sedation Given During Procedure Sedation Given (Indicate Dose Given): Versed IV Dose:: 1mg Patient Mental Status Patient Mental Status: Sedate with meaningful communication Nerve Block 1st Nerve Block: Laterality: Right Block Type: Adductor Canal Ultrasound Image Saved?: Yes Needle / Catheter Used: 120mm SonoPlex II Local Anesthetic Bolus (Indicate Dose Given): Lidocaine used for local infiltration of skin, Injected in 3-5ml increments after negative blood aspiration and Bupivacaine 0.25% Dose:: 15mL Additives (Indicate Dose Given): None Ultrasound: Sterile probe cover and gel used Nerve Stimulator: Not Used Paresthesia: None Procedure Tolerated: No Complications Procedure Outcome: Successful Performed By: Kelley Garcia
--- NOTE | 2023-02-21 13:40 | W.PM.OP ---
Date of service: 02/21/23 Time of Service: 13:40 Operative Note Operative Note PRE-OP DIAGNOSIS: Right Knee Osteoarthritis POST-OP DIAGNOSIS: same PROCEDURE: Right Total Knee Replacement with Intraoperative Navigation SURGEON: Demetrius Branch CAR REPAIRER PULLMAN: Jonah Fuentes ANESTHESIA TYPE: General LMA/ETT Refer to Anesthesia Record ESTIMATED BLOOD LOSS: 350 PATHOLOGY: none sent TOURNIQUET TIME: 0 COMPLICATIONS: None Patient was transported to: PACU Patient's condition: stable Implants: 1. Depuy Attune Cementless Cruciate Retaining Femoral Component, Size 7 2. Depuy Attune Cementless Fixed Bearing Tibial Component, Size 5 3. Depuy Attune 7x5mm CR/FB Poly 4. Depuy Attune Patellar Component, Size 32 Indications: I have seen Nicole in clinic for symptoms of RIGHT knee arthritis, confirmed with radiographic findings. Nicole has exhausted nonoperative methods and was having significant limitations in daily function and desired better function and less pain. I discussed the technical details of a knee replacement. I explained the risks of the procedure to include, but not limited to, bleeding, infection, pain, stiffness, fracture, damage to nerves and vessels, damage to muscles and tendons, loosening, need for repeat procedure, blood clot and cardiopulmonary demise. Despite these risks, she elected to proceed. Findings: There was significant signs of arthritis throughout the knee with notable deformity and eburnation of the patella and trochlea. Procedure Description: Nicole was greeted in the preoperative holding area where the correct side was identified and marked. The consent was reviewed with the patient and signed. The history and physical was updated. All questions were answered. Preoperative mediacations were administered: Acetaminophen 1000mg, Celebrex 400mg, and Gabapentin 300mg. An adductor canal block was then administered by the anesthesia team in the PACU. She was taken back to the operating room. A spinal anesthestic was then attempted but unsuccessful. Therefore, a general anesthetic was administered. The patient was placed into the supine position on the operating room table. A nonsterile tourniquet was placed high onto the leg. Posts were placed for positioning during the procedure. All bony prominences were well padded. Prophylactic antibiotics in the form of Cefazolin were administered. 1g of Tranxemic Acid was given intravenously within 30 minutes of incision. The right leg was then prepped with Chloraprep and draped in a standard fashion with impervious stockinette. A second prep with Chloraprep was performed prior to application of Iodine impregnated skin protection. A timeout to confirm correct identity, side and site, procedure, allergies, anesthesia, and medical concerns was performed. With the knee in some flexion, a midline incision was made overlying the knee. Full thickness skin flaps were raised once the extensor mechanism was encountered. These were raised medially and laterally. Any bleeding was controlled with electrocautery. Once the extensor mechanism was fully exposed, a medial parapatellar arthrotomy was performed in a flexed position. All bleeding from the arthrotomy and the geniculate arteries was coagulated. A medial subperiosteal peel was performed with electrocautery to the midcoronal plane. The fat pad was removed while keeping the patellar tendon protected. The anterior distal femur synovium was removed for later visualization. The ACL and PCL were resected and the anterior horn of the lateral meniscus was transected. The knee was then flexed with the patella everted. Large osteophytes from the tibia were removed. Large osteophytes from the femur were removed. The patella had large osteophytes and deformity. The trochlea and patella showed significant eburnation. A single starting pin was then placed 1cm anterior to the PCL insertion and the notch in the direction of the femoral head. The OrthoAlign device was applied over the pin. It was oriented to be in line with the epicondylar axis and the trochlear groove. It was then pinned into place. The navigation computer was then turned on and calibrated. The distal femur cut was set at 0.5 degrees varus and 3 degrees flexion. The distal femur cutting guide then was positioned for a 9mm cut. The distal femur was cut with an oscillating saw while protecting the soft tissues. The tibia was then addressed. The OrthoAlign device was placed over the tibial tubercle and medial tibia and secured into position. Once again, OrthoAlign was calibrated and then set for a 1 degree varus cut and 5 degrees of posterior slope. With this locked into position, the cut thickness stylus was used to assess cut thickness. The medial side, most involved side, was set for a 5mm cut, corresponding to 7mm laterally. This was then held in position and pinned into place with 2 additional pins and a cross pin for stability. The medial and lateral collateral ligaments were protected and the cut was performed. With this completed, it was assessed and noted to be of appropriate dimensions. The guide and OrthoAlign was removed. A spacer block was inserted and the knee was brought into extension to ensure enough space was present. The femur was then sized as a size 7. The Orthoalign gap balancing device was then placed in extension. This was used to ensure that the ligaments were properly balanced with up to 2 to 3 mm laxity laterally compared medially. The extension gap was measured as 15mm.The knee was then brought into 90 degrees of flexion and the ligament forestry hunter was once again placed. Under the same amount of force the flexion gap was measured. The attending specific jig was placed and the flexion gap was made to match the extension gap. The 4-in-1 cutting guide was the placed. An brad wing was used to confirm appropriate position of the anterior cut to avoid notching. This cutting guide was ensured to be flush on the cut surface and then pinned into place with headed pins. While protecting the soft tissues, quad tendon, and collateral ligaments, the anterior and posterior cuts were performed with a saw. The central two pins were removed and the posterior and anterior chamfers were cut next. The notch-cutting guide was placed. This was pinned to lateralize the femoral component as much as possible while keeping it flush on the cut surface. This was then pinned into position. A saw was used to make the notch cut. A rasp smoothed the cut surfaces. The medial and lateral menisci were removed. A trial femoral component was then inserted, impacted down to the cut surfaces, and the lug holes were drilled. A provisional trial tibial component was placed and the knee was brought through range of motion. There was noted to be excellent extension and flexion. There was no significant instability. The patella was tracking without thumbs. A size 5mm polyethylene component provided the best range of motion and stability with less than 2mm gapping with medial and lateral stress and full extension without significant hyperextension. The tibial cut surface was fully exposed. The tibia was then sized as a 5. The tibia had been previously marked during trialing to correspond to the center of the tibial component to help with rotation. The trial was aligned to this jonah, approximately rotated to the medial 1/3rd of the tibial tubercle. The trial was pinned into place. The tibia was prepared with a reamer and a keel punch and lug holes. The knee was then brought into extension and the patella was measured as 19mm. Using the patellar clamp and cut guide, this was resected to a flat surface with at least 13mm of thickness remaining. The size 32 patella fit the best. This was oriented and then clamped into position. The lugs were drilled. The trial components were removed. The final components were opened on the back table. The periosteal and capsular tissues, especially posteriorly, around the knee were then systematically injected with a periarticular cocktail consisting of 246mg of Ropivacaine, 0.5mg of Epinephrine, 0.08mg of Clonidine, and 30mg of Ketorolac, diluted to 100cc. On the back table, with the implants opened, the cement was mixed. One batch of high viscosity cement was prepared with vacuum assistance. After the cement was ready a small amount was placed on the cut surface of the patella and the patellar button was clamped into position and held. While the cement was hardening, the cementless knee components were placed. Starting with the tibial component, the tibia was subluxed anteriorly and the lug holes of the component were lined up. The tibia was then impacted with an impactor and mallet until the tibial component was in contact with the tibia. Then, the femoral component was inserted. The lug holes were aligned and the component was impacted into position. The final polyethylene component was inserted. Back in extension, the knee was irrigated with Surgiphor Betadine solution. This was allowed to sit in the knee for 3 minutes and then it was thoroughly irrigated out with saline. After the cement had finally cured, approximately 15min, the clamp was removed from the patella and the knee was taken through range of motion. The patella was tracking with a no-thumbs technique. The capsule was then reapproximated with a No. 1 Vicryl at multiple locations. The capsule was finally closed with a No. 2 Stratafix, barbed suture. Deep tissues were then reapproximated with 0 Vicryl and 2-0 Vicryl. The skin was closed with a running 3-0 Monocryl in a subcuticular fashion. This was reinforced with skin glue. A Mepilex silver dressing was applied along with a [id number] CLARK wrap. A CryoCuff was applied. Nicole was transferred to the hospital bed without difficulty an suffering no apparent complication. Nicole has a good prognosis. Physical therapy will start today and without restrictions, weight-bearing as tolerated. Aspirin 81mg BID will be used for DVT prophylaxis.
--- NOTE | 2023-02-21 16:17 | W.PM.DSUDISC ---
Date of service: 02/21/23 Time of Service: 16:17 Discharge Plan Disposition Patient Disposition: Home Condition: Good Discharge Details Reason For Visit: R TKR Attending Provider: Demetrius Branch Primary Care Provider: Austen Mendez Home Meds and New Rx's Prescriptions: New acetaminophen 500 mg tablet 1,000 mg PO TID Qty: 90 3RF celecoxib 200 mg capsule 200 mg PO BID Qty: 60 0RF aspirin 81 mg tablet,delayed release (DR/EC) 81 mg PO BID Qty: 60 0RF dexamethasone 4 mg tablet 4 mg PO DAILY Qty: 2 0RF gabapentin 300 mg capsule 300 mg PO QHS Qty: 14 0RF oxycodone 5 mg tablet 5 mg PO Q4H MDD 6 tabs PRN (Reason: pain) Qty: 20 0RF pantoprazole 40 mg tablet,delayed release (DR/EC) 40 mg PO DAILY Qty: 30 0RF Continued atorvastatin [Lipitor] 20 mg tablet 20 mg PO QHS Spiriva Respimat 1.25 mcg/actuation mist 2 puff inhalation DAILY Qty: 4 12RF polyethylene glycol 3350 [Miralax] 17 gram/dose powder 17 g PO DAILY PRN trazodone 50 MG tablet 50 mg PO HS lisinopril 20 MG tablet 20 mg PO QAM sertraline 100 MG tablet 100 mg PO BID albuterol sulfate [Ventolin HFA] 8 GM HFA aerosol inhaler 8 g Inhalation PRN multivitamin 1 EACH capsule 1 tab PO QAM Glucosamine Sulf-Chondroitin 1 EACH capsule 1 cap PO QAM Discontinued celecoxib 200 mg capsule 200 mg PO DAILY Patient Comments: TAKE ONE CAPSULE BY MOUTH EVERY DAY NEEDED FOR PAIN oxycodone 5 mg capsule 5 mg PO BID PRNQty: 7 0RF Discharge Instructions Additional Instructions: Total Knee Discharge Instructions Activity: The most important activity is to walk and to work on gentle motion (both flexion and extension). You should try to take short walks a few times a day. It is important that when resting you work on keeping the knee straight. Avoid putting a pillow behind the knee as this will encourage flexion. Work on range of motion exercises as provided by Physical Therapy. - Start outpatient physical therapy within 2 weeks. - You should wear the ALAN hose on both legs for 2 weeks. You may remove these at night. You may also use any compression sock in place of the ALAN hose. - Utilize [employer] to review exercises, see videos on exercises and obtain basic information pertaining to your surgery and your recovery. Dressing: Remove the Rudy wrap by 2 days after your surgery and put on the ALAN stocking given to you from the hospital. Keep the surgical dressing (underneath the RUDY wrap) in place for at least one week. After the first week it may be removed and replaced with light gauze and tape or nothing. The wound and dressing may get wet after 3 days but avoid soaking the dressing or otherwise it will need to be changed. Many people prefer covering the dressing with cling wrap (saran wrap) to minimize it from getting soaked. If it gets wet, just pat dry. If it starts to peel off then it will need to be changed. Medications: - You should take Tylenol and anti-inflammatory Celebrex as your primary pain control medications. If the Celebrex is too expensive or not covered, please call the office for another alternative (Advil/Ibuprofen or Naproxen/Aleve) - You have been prescribed a stronger pain medication Oxycodone for breakthrough pain, take as needed as prescribed. - You have also been prescribed a stomach acid reduction agent Pantoprozole to help reduce stomach acid and reflux. - You have been prescribed Gabapentin to take at night for restlessness and nerve pain. - You will be taking Aspirin 81mg twice a day for DVT prevention unless instructed otherwise. - You have also been prescribed Decadron to take to control post-operative nausea and pain. You will start this tomorrow. - If you have constipation you should take Colace or Miralax (both tcks-iqu-hobbcky). It takes most people 3-4 days to have a bowel movement. Follow-up: 2 weeks If you have any acute concerns or questions, please do not hesitate to contact the office at [phone]. You may contact Dr. Branch with any questions after hours through the hospital at [phone] or on his cell phone at [phone]. Stand Alone Forms: Anesthesia Discharge Inst., Anes.Nerve Block Instructions, Edelmira Vega (DSU) Referrals: Demetrius Branch MD [ [facility] STAFF PHYSICIAN] - 03/08/23 11:00 am Equipment/Supplies: Walker Activity:: Activity as Tolerated Shower/Bathe:: 72 hours Diet:: As Tolerated Discharge Orders Discharge Orders: Discharge Order (Routine); Ordered 02/21/23 Ordered By: Demetrius Branch DS: Diagnosis Discharge Diagnosis (1) Osteoarthritis of right knee: Status: Acute
--- NOTE | 2023-02-21 17:29 | PT.INIE ---
Date of service: 02/21/23 Time of Service: 15:35 PT Notes Visit Reasons: R TKR Physical Therapy Day Surgery Initial Evaluation Date: 02/21/2023 Referring Doctor: SIGIFREDO Harmon PT Orders: PT CONSULT: S/p Ortho surgery Precautions: WBAT on the right LE with AD. Patient Profile/Admitting Diagnosis: Nicole is a 72-year-old female with degenerative joint disease of the right knee and is status post right total knee arthroplasty on postoperative day 0. PMHX: All Active Problems? 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 Will have the assistance of family as she recovers from surgery. Equipment Owned/DME: FWW Subjective: Reports 2/10 pain on the right knee at rest and with weightbearing. Denies headache and chest pain. Did report mild lightheadedness at onset that resolved eventually with ambulation. Objective: General Observation: Supine in bed. CLARK wraps to right LE. Cryocuff to right knee. TEDs to left leg. Daughter Amy available throughout session. Mental Status: Alert and oriented x4 Pain: 2/10 pain on the right LE with AD ROM: Right Lower Extremity: Hip flexion WFL. Hip abduction WFL. Knee flexion 15 degrees to 90 degrees. Knee extension -15 degrees. Ankle dorsiflexion WFL. Ankle plantarflexion WFL. Left Lower Extremity: Hip flexion WFL. Hip abduction WFL. Knee flexion WFL. Ankle dorsiflexion WFL. Ankle plantarflexion WFL. Strength: Right Lower Extremity: Hip flexors 5/5. Hip abductors 5/5. Knee flexors 3-/5. Knee extensors 3-/5. Ankle dorsiflexors 5/5. Ankle plantarflexors 5/5. Left Lower Extremity:Hip flexors 4/5. Hip abductors 4/5. Knee flexors 4/5. Knee extensors 4/5. Ankle dorsiflexors 5/5. Ankle plantarflexors 5/5. Sensation: Intact as to pain and light pressure in bilateral lower extremities Bed Mobility/Transfers: Supine to sit standby assist with FWW Sit to stand contact-guard assist Stand to sit standby assist with FWW Bed to chair standby assist with FWW Gait: Tolerated short distance ambulation of 15 feet from bedside to bedside chair due to report of mild lightheadedness. After seated rest patient was able to manage 75 feet of level surface ambulation using front wheeled walker with standby assist, lightheadedness resolved. Contact-guard assist provided, step through gait pattern. Balance: Static Sitting: Normal Dynamic Sitting: Good Static Standing: Fair Dynamic Standing: Fair Special Tests: Mobility Limitations Standardized Measure [facility] AM-PAC 6 clicks Basic Mobility Inpatient Short Form: Raw Score: 20 CMS Score: 36% deficit Informed Consent/Education: Patient instructed in purpose of PT consult. Packet containing TKA exercise protocol has been given to patient. Education and training on initial set of exercises that can be done at home have been completed with patient. THERA EX: Facilitated safe and correct performance of HEP with patient and patient's daughter as follows: Access Code: [email or web address] URL: [email or web address] Date: 02/21/2023 Prepared by: Laly Harirs Exercises - Supine Quadricep Sets? - 1 x daily - 7 x weekly - 1 sets - 10 reps - 5 hold - Supine Heel Slide? - 1 x daily - 7 x weekly - 1 sets - 10 reps - 5 hold - Supine Ankle Pumps? - 1 x daily - 7 x weekly - 1 sets - 10 reps - 5 hold - Small Range Straight Leg Raise? - 1 x daily - 7 x weekly - 1 sets - 10 reps - 5 hold - Seated November? - 1 x daily - 7 x weekly - 1 sets - 10 reps - 5 hold Assessment: Patient requires the use of a front wheeled walker to maximize independence and reduce fall risk. Patient presents with clinical signs and symptoms consistent with current/admitting diagnoses that have resulted to mobility limitations, gait instability, generalized weakness, and impairment of motor control as demonstrated by the following impairment level findings: 1. Decreased strength to R knee major muscle groups 2. Impaired standing balance 3. Limitation of joint range of motion in R knee Impairments are contributing to the following functional limitations: 1. Inability to safely ambulate without assistive device 2. Increase completion time for mobility ADL performance 3. Increased fall risk Patient is assessed as a 22951 moderate complexity based on the following: History: 72-year-old female with impairment level findings, functional limitations, and past medical history as indicated above Examination: Demonstrable impairment in strength, balance, and mobility level with underlying impairments and functional limitations as documented above Presentation: Evolving Decision Makin moderate complexity Goals: N/A. PT evaluation and 1-2 treatment sessions only for functional mobility training using recommended AD and for HEP instruction. Plan of Care/Treatment Plan: N/A. PT evaluation and 1-2 treatment session only for functional mobility training using recommended AD and for HEP instruction. DISCHARGE RECOMMENDATIONS: Home when medically cleared by orthopedic surgeon. Recommend outpatient PT services in order to optimize functional outcomes and facilitate return to independent community ambulation without an assistive device. TREATMENT CODE/TIME: 85670 x 20 minutes, 48783 x 25 minutes beginning at 15:35 PM. Thank you for the opportunity to participate in the care of this patient. Laly aHrris PT, DPT, CLT [facility] [place], [place]
--- NOTE | 2023-02-21 17:36 | W.ANESPOSTOP ---
Postoperative Evaluation Date, Time and Location Date Performed: 02/21/23 Time Performed: 16:00 Patient Location: PACU Vital Signs Most Recent Imported Vital Signs: Most Recent Vital Signs Temp Pulse Resp BP Pulse Ox 36.4 C L 68 18 107/82 97 02/21/23 15:10 02/21/23 15:10 02/21/23 15:10 02/21/23 16:00 02/21/23 15:10 Pain Score Most Recent Pain Score: Most Recent Pain Score Pain Level 0 02/21/23 15:10 Assessment Mental Status: Awake (Alert & Oriented to Patient Baseline) Airway and Respiratory Function: Patent airway with normal (patient baseline) respiratory exam Cardiovascular Function: Hemodynamically Stable Hydration Status: Adequately Hydrated Nausea & Vomiting: No Nausea or Vomiting Pain: Pain is tolerable per patient Peripheral Nerve Block: Regional nerve block not resolved at time of post operative discharge
== END 2023-02-21 17:04 | disposition home or self-care (01) ==
PROVIDERS: PCP Family Medicine; Visit Provider Student in an Organized Health Care Education/Training Program
PROC: (CPT 27447; principal; 2023-02-21 11:30)
DX: M17.11 Unilateral primary osteoarthritis, right knee (principal); J45.41 Moderate persistent asthma with (acute) exacerbation; I10 Essential (primary) hypertension; E78.5 Hyperlipidemia, unspecified
CPT/HCPCS: 20985; 27447; C1776; 76942; 97162; 97530; J0690; J2405; J2704

== ENCOUNTER 2023-03-08 11:17 | Outpatient (CLI) | payer MEDICARE, SELFPAY ==
--- NOTE | 2023-03-08 10:00 | DI.RAD_ITS ---
Exam(s) XR KNEE RT 1V XR STANDING ALIGNMENT EXAM: XR STANDING ALIGNMENT CLINICAL HISTORY: 1ST POST OP R TKA. TECHNIQUE: 2D digital imaging was performed. Standing AP views were performed from the pelvis throu gh the ankles. COMPARISON: CR XR STANDING ALIGNMENT from 01/29/2023 CR XR KNEE RT 1V from 03/08/2023 FINDINGS: BONES: No acute fracture is present. No bony destructive lesion is seen. Leg length discrepancy: No significant overall leg length discrepancy. JOINTS: Knees: Unremarkable total right knee prosthesis. No abnormal surrounding bony lucencies. Left knee joint spaces are maintained. Periarticular spurring is present. The ankle joints are unremarkable. The hip joints show no change in appearance of bilateral hip prostheses. SOFT TISSUE: Normal. IMPRESSION: Bilateral hip prostheses and right knee prosthesis. No significant leg length discrepancy. DATA REPOSITORY: RADIATION DOSE DELIVERED:
== END 2023-03-08 11:18 | disposition home or self-care (01) ==
LOC: DIORS 11:18
PROVIDERS: PCP Family Medicine; Referring Provider Family Medicine; Visit Provider Physician Assistant
DX: Z96.651 Presence of right artificial knee joint (principal); Z47.1 Aftercare following joint replacement surgery
CPT/HCPCS: 73560; 77073

== ENCOUNTER → 2023-04-06 11:02 | Outpatient (BNVA) | payer MEDICARE, SELFPAY | PROVIDERS: PCP Family Medicine; Referring Provider Family Medicine | DX: Z47.1 Aftercare following joint replacement surgery (principal); Z96.651 Presence of right artificial knee joint ==

== ENCOUNTER 2023-04-20 10:45 | Outpatient (REF) | payer MEDICARE, SELFPAY ==
[2023-04-20 16:23] LABS: BUN 19 mg/dL (7-18); Calcium 9.2 mg/dL (8.5-10.1); Calculated LDL 58 mg/dL (<100); Chloride 105 mmol/L (98-107); Cholesterol 148 mg/dL (<200); Estimated GFR 59.49 (mL/min/1.73m2); Glucose 104 mg/dL (74-106); HDL Cholesterol 74 mg/dL (40-60); Potassium 4.6 mmol/L (3.5-5.1); Sodium 140 mmol/L (136-145); Triglyceride 81 mg/dL (<150)
== END 2023-04-20 10:46 | disposition home or self-care (01) ==
LOC: NCHCN 10:45
PROVIDERS: PCP Family Medicine; Visit Provider Family Medicine
DX: I10 Essential (primary) hypertension (principal); E78.5 Hyperlipidemia, unspecified
CPT/HCPCS: 80048; 80061

== ENCOUNTER → 2023-06-08 01:00 | Outpatient (CLI) | payer MEDICARE, MEDICAID, SELFPAY ==
--- NOTE | 2023-06-08 11:26 | DI.RAD_ITS ---
Exam(s) XR LUMBAR SPINE COMPLETE EXAM: XR LUMBAR SPINE COMPLETE CLINICAL HISTORY: LOW BACK PAIN M54.50 X 3 MO. TECHNIQUE: 2D digital imaging was performed. Five views. COMPARISON: No exams were available for comparison FINDINGS: BONES: No fracture or destructive lesion. Vertebral body heights are maintained. Multilevel facet hy pertrophy identified. Bilateral hip prostheses. DISKS: Severe disc space narrowing throughout. Prominent endplate osteophytes. ALIGNMENT: Marked dextrorotoscoliosis centered at L2-3. No spondylolisthesis. SOFT TISSUE: Mae surgical clips right upper quadrant. IMPRESSION: Severe degenerative changes and scoliosis. DATA REPOSITORY: RADIATION DOSE DELIVERED:
--- NOTE | 2023-06-08 11:55 | DI.MAMMO_ITS ---
Exam(s) MAMMO SCREENING EXAM: MAMMO SCREENING CLINICAL HISTORY: SCREENING MAMMO, [facility] Z00.00 TECHNIQUE: Mammograms were interpreted according to the usual protocol including computer analysis w [employer] CAD system, tomosynthesis and C-view imaging. COMPARISON: 2013 through 2017 FINDINGS: The breasts are composed of mainly fatty density , Breast Density category A. No suspicious masses or suspicious microcalcifications are seen. No skin thickening or abnormal axillary lymph nodes are seen. There has been no significant change from prior exams. IMPRESSION: BI-RADS Category 1, Negative mammogram Yearly screening mammography is recommended. Breast Density - Category A, fatty density. A negative radiographic report should not delay biopsy if a dominant or clinically suspicious mass is present. Up to ten percent of cancers are not identified on mammography. A negative report may reinforce clinical impression. Adenosis and dense breasts may obscure an underlying neoplasm. False positive reports average 6 to 10%. Patient will receive a letter notifying them of these results.
== END ==
PROVIDERS: PCP Family Medicine; Visit Provider Family Medicine
DX: Z12.31 Encounter for screening mammogram for malignant neoplasm of breast (principal); Z96.642 Presence of left artificial hip joint; Z96.641 Presence of right artificial hip joint; M54.50 Low back pain, unspecified
CPT/HCPCS: 77063; 77067; 72110

== ENCOUNTER → 2023-10-11 09:00 | Outpatient (BNVA) | payer MEDICARE, SELFPAY | PROVIDERS: PCP Family Medicine; Referring Provider Family Medicine; Visit Provider Student in an Organized Health Care Education/Training Program | DX: J45.909 Unspecified asthma, uncomplicated (principal) | CPT/HCPCS: 99214 ==

== ENCOUNTER → 2024-01-17 09:53 | Outpatient (BNVA) | payer MEDICARE, SELFPAY | PROVIDERS: PCP Family Medicine; Referring Provider Family Medicine; Visit Provider Physical Therapy Assistant | DX: Z12.11 Encounter for screening for malignant neoplasm of colon (principal) ==

== ENCOUNTER 2024-02-15 07:04 | Day surgery (SDC) | payer MEDICARE, SELFPAY ==
--- NOTE | 2024-02-14 23:27 | PDOC.DSDIS_ITS ---
Date of service: 02/15/24 Time of Service: 08:56 Discharge Plan Disposition Patient Disposition: Home Condition: Good Discharge Details Reason For Visit: Colorectal cancer screening Attending Provider: Sharron Sierra Primary Care Provider: Nanci De Leon Home Meds and New Rx's Prescriptions: Continued budesonide-formoterol [Symbicort] 160-4.5 mcg/actuation HFA aerosol inhaler 2 puff inhalation BID Qty: 10.2 12RF polyethylene glycol 3350 [Miralax] 17 gram/dose powder 17 g PO DAILY PRN Dulera 200-5 mcg/actuation HFA aerosol inhaler 2 puff inhalation BID Qty: 13 12RF atorvastatin [Lipitor] 20 mg tablet 10 mg PO QHS trazodone 50 MG tablet 50 mg PO HS lisinopril 20 MG tablet 20 mg PO QAM sertraline 100 MG tablet 100 mg PO BID albuterol sulfate [Ventolin HFA] 8 GM HFA aerosol inhaler 8 g Inhalation PRN multivitamin 1 EACH capsule 1 tab PO QAM Glucosamine Sulf-Chondroitin 1 EACH capsule 1 cap PO QAM acetaminophen 500 mg tablet 1,000 mg PO TID Qty: 90 3RF celecoxib 200 mg capsule 200 mg PO BID Qty: 60 0RF Discontinued bisacodyl [Dulcolax (bisacodyl)] 5 mg tablet,delayed release (DR/EC) 5 mg PO ONCE Qty: 4 0RF polyethylene glycol 3350 17 gram/dose powder 17 g PO DAILY Qty: 238 0RF Discharge Instructions Additional Instructions: DSU Colonoscopy Post- Op Instructions Instructions for Everyone who is given Anesthesia: For your safety, please do the following for the next twenty-four (24) hours: *Do Not operate a motor vehicle (car, truck, motorcycle, etc.) *Do Not drink alcoholic beverages or use any recreational drugs for the first 24 hours or while taking pain medications. The medications in your body may have a reaction that can be dangerous. *Do Not make any important decisions or sign any important papers. Findings: Diverticula Follow up: Ensure you are moving your bowels on a regular basis and not straining to go to the bathroom. If you find you are having problems with constipation/straining then we recommend you start a fiber supplement daily such as Metamucil. 1. No lifting over 20 pounds or strenuous activity for the first 24 hours after your procedure. After 24 hours there are no restrictions on your activity but you may feel fatigued for a few days. 2. After you arrive home you may have a light meal and return to your normal diet as you can tolerate it without feeling sick to your stomach. 3. You may have a bloated, gaseous feeling in your belly (abdomen) after a colonoscopy. Passing gas and belching will help. Walking or lying down on your left side with your knees flexed may relieve the discomfort. Call the office at [phone] (Office) or [phone] (Hospital) right away if you notice any of the following: a.Vomiting of blood or ?coffee ground stools?. b.Rectal bleeding 1Tbsp, blood clots or continuous bleeding. c.Severe belly (abdominal) pain. d.A hard distended belly (abdomen) and an inability to pass gas. 4. Please don?t expect to have a normal BM (bowel movement) for 2-3 days after your procedure. 5. If there are questions regarding the findings of your procedure, please contact your doctor 6. If you are unable to contact your doctor with a problem, contact the hospital at [phone]. 7. Continue all your regular medications unless directed otherwise. I understand the above instructions and have no questions. Signature of Patient or Adult Escort Name of Responsible Adult Escort Signature of Nurse Date/Time Activity:: See above Diet:: See above Discharge Orders Discharge Orders: Discharge Order (Routine); Ordered 02/15/24 Ordered By: Sharron Sierra DS: Diagnosis Discharge Diagnosis (1) Hypertensive disorder: Status: Chronic (2) Left ventricular hypertrophy: Status: Acute (3) Hyperlipidemia: Status: Acute (4) BMI 39.0-39.9,adult: Status: Acute (5) Fibroids: Status: Acute (6) Osteoarthritis: Status: Chronic (7) Thoracic outlet syndrome: Status: Acute (8) Asthma: Status: Chronic (9) Screening for malignant neoplasm of colon performed: Status: Acute Asessment and Plan: The patient is seen and examined after their colonoscopy.? The patient has been able to pass gas.? They are not having abdominal pain.? They have been able to tolerate liquids and a snack.? They do not have any nausea or vomiting.? They are not having any chest pain or shortness of breath.??? They are not having any rectal bleeding. Their vital signs have been stable-see nursing notes. We discussed findings during their colonoscopy, and any biopsies that were done/polyps that were removed. The patient will be sent a letter with any biopsy results, and when to repeat the colonoscopy.-see discharge instructions. Patient was given explicit instructions to follow-up regarding colonoscopy-refer to discharge instructions.? We reviewed resumption of medications. Patient verbalized understanding and discharged in stable and satisfactory condition- See nursing notes. (10) Diverticula of colon: Status: Acute
--- NOTE | 2024-02-14 23:30 | COLE_ITS ---
Date of service: 02/15/24 Time of Service: 08:57 Colonoscopy Report Date of procedure: 02/15/24 Pre-op diagnosis general: Colorectal cancer screening Post-op diagnosis procedure note: other (Diverticula) Surgeon: Sharron Sierra Anesthesia Type: General:No Airway Estimated blood loss (mL): 0 Pathology: none sent Complications: None Disposition: same day Prep: Miralax/Dulcolax Retraction Time: 10 Procedure Description: After informed consent was obtained the patient was taken to the procedure room and placed in a left decubitous position. Monitors were applied and a time out was done. The patients name, date of , procedure, allergies to medications and metal in their body was reviewed. The patient was then sedated. Once sedated and comfortable a rectal exam was done. External exam was normal. Internal exam revealed a normal sphincter tone and no palpable masses. The scope was then introduced and retrofelexed. No internal hemorrhoids were identified. The scope was then advanced to the cecum without difficulty. The TI and appendiceal orifice were identified. She has moderate degree of diverticula that do extend all the way over to the transverse colon. There is no signs of active bleeding or infection. Mucosa is otherwise pink and healthy with a normal vascular pattern.. The scope was then slowly retracted over 10 minutes back into the rectum. The scope was removed and the patient was woken up and taken back to Same day surgery in stable condition. The patient tolerated the procedure well and there were no immediate complications. Follow up: The patient does not require any screening colonoscopies, unless they develop changes in bowel habits or other new gastrointestinal complaints. [facility] Bowel Prep [facility] Bowel Prep Right Colon: 3 Left Colon: 3 Transverse Colon: 3 Total Score: 9
[2024-02-15 07:27] VITALS: BP 146/71; PULSE 74; RESP 16; TEMP 36.2; O2SAT 98
[2024-02-15] MEDS: Lactated Ringers 1,000 ML 80 ML IV (07:46)
[2024-02-15 08:17] VITALS: BMI 37.2
--- NOTE | 2024-02-15 08:17 | W.ANESPRE ---
General Info Date of Service Date Performed: 02/15/24 Height: 5 ft 1.8 in Weight: 91.8 kg Body Mass Index (BMI): 37.2 Surgical Procedure: Operation Date: 02/15/24 08:20 Proposed Procedure Side Surgeon mike Sierra, DO Meds Allergies and Home Medications Allergies Allergy/AdvReac Type Severity Reaction Status Date / Time petrolatum,white AdvReac Unknown voice Verified 02/15/24 07:26 [From Petroleum Jelly] changes some perfumes AdvReac Unknown Other (See Uncoded 02/15/24 07:26 Comment) Home Medication Medication Instructions Recorded albuterol sulfate 90 mcg/actuation 8 g inhalation PRN 12/20/13 aerosol inhaler (Ventolin HFA) glucosamine sulfate dipotassium Cl 1 cap PO QAM 12/20/13 500 mg-chondroitin 400 mg capsule (Glucosamine Sulfate 2 KCL-Chondroitin) lisinopril 20 mg tablet 20 mg PO QAM 12/20/13 multivitamin 1 tab PO QAM 12/20/13 sertraline 100 mg tablet 100 mg PO BID 12/20/13 trazodone 50 mg tablet 50 mg PO HS 12/20/13 polyethylene glycol 3350 17 17 g PO DAILY PRN 06/13/22 gram/dose oral powder (Miralax) acetaminophen 500 mg tablet 1,000 mg (2 x 500 mg) PO TID #90 02/21/23 tabs celecoxib 200 mg capsule 200 mg PO BID #60 caps 02/21/23 budesonide-formoterol HFA 160 2 puff inhalation BID #10.2 grams 10/11/23 mcg-4.5 mcg/actuation aerosol inhaler (Symbicort) mometasone-formoterol HFA 200 2 puff inhalation BID #13 grams 10/12/23 mcg-5 mcg/actuation aerosol inhaler (Dulera) atorvastatin 20 mg tablet (Lipitor) 10 mg PO QHS 11/30/23 Current Visit Medications: Current Medications Generic Name Dose Route Start Last Admin Trade Name Freq PRN Reason Stop Dose Admin Hyoscyamine Sulfate 0.125 mg 02/15/24 11:25 Hyoscyamine 0.125 Mg Sl/Oral/Chew SL 03/16/24 11:24 DIRECTED PRN Ringer's Solution 1,000 mls @ 80 mls/hr 02/15/24 06:00 02/15/24 07:46 IV 02/15/24 23:59 80 mls/hr INFUSION ALEX Administration IV Miscellaneous Supplies 1 each 02/15/24 06:00 Iv Access IV 02/15/24 23:59 DIRECTED ALEX Ondansetron HCl 4 mg 02/15/24 11:25 Ondansetron 4 Mg/2 Ml Vial IVP 03/16/24 11:24 Q4H PRN PRN Nausea / Vomiting Sodium Chloride 0 ml 02/15/24 06:00 Normal Saline Flush 10 Ml Syr IV 02/15/24 23:59 PRN PRN Sodium Chloride 0 ml 02/15/24 06:00 Normal Saline 10 Ml Vial IJ 02/15/24 23:59 DIRECTED PRN Sterile Water 0 ml 02/15/24 06:00 Water,Injection,Sterile 10 Ml Vial IJ 02/15/24 23:59 DIRECTED PRN PFSH Active Problems Active Problems: Problem Status Onset Code Screening for malignant neoplasm of colon performed Z12.11 History of total right knee replacement 02/21/23 Z96.651 Asthma J45.909 BMI 39.0-39.9,adult Z68.39 Osteoarthritis M19.90 Migraine G43.909 Hyperlipidemia E78.5 Thoracic outlet syndrome G54.0 Fibroids D21.9 Left ventricular hypertrophy I51.7 Hypertensive disorder I10 Moderate persistent allergic asthma with acute exacerbation J45.41 Medical History Medical History Scoliosis Anxiety Uterine leiomyoma Fracture of right wrist Parks's palsy Nephrolithiasis Medical History Comments:: 02/21/23: pt reports she cannot lie flat, pt reports she is unable to breathe if she lies flat. Surgical History Surgical History Hx of total knee replacement Status post trigger finger release thumb Hx of cholecystectomy History of total left hip replacement History of total hip replacement Right Tobacco Smoking/Tobacco Use Status: Never Alcohol Alcohol Intake: current Alcohol intake frequency: holidays/special occasions only Substance Use Substance use: Never Substance use type: does not use Vital Signs and Lab Results Vital Signs Most Recent Vital Signs in EMR: Most Recent Vital Signs Temp Pulse Resp BP Pulse Ox 36.2 C L 74 16 146/71 H 98 02/15/24 07:27 02/15/24 07:27 02/15/24 07:27 02/15/24 07:27 02/15/24 07:27 Lab Results Blood Type / Crossmatch: No Data to Display Complete Blood Count: No Data to Display Complete Metabolic Panel: No Data to Display Liver Function Panel: No Data to Display Coagulation Panel: No Data to Display Cardiac Panel: No Data to Display Arterial Blood Gas: No Data to Display Venous Blood Gas: No Data to Display Pancreas Panel: No Data to Display Thyroid Panel: No Data to Display Infectious Disease: No Data to Display Blood Cultures: No Data to Display Toxicology Panel: No Data to Display Imaging and Studies Imaging and Studies Study information below may be from another EMR and interpreted by another provider. Please see original notes in EMR for more complete details. Echocardiogram Summary: 05/09/2017: Summary: 1. Left ventricle: The cavity size was normal. Wall thickness was increased in a pattern of mild LVH. Systolic function was normal. The estimated ejection fraction was 60-65%. Wall motion was normal; there were no regional wall motion abnormalities. Diastolic parameters were normal for age. 2. Aortic valve: Valve mobility was trivially restricted. There was very mild stenosis. There was trivial regurgitation. Mean gradient (S): 6mm Hg. Valve area (VTI): 1.5cm^2. 3. Right ventricle: The cavity size was normal. Wall thickness was normal. Systolic function was normal. 4. Pulmonary arteries: Pulmonary systolic pressure was within the normal range, in the range of 25mm Hg to 30mm Hg. Pulmonary Function Summary: 10/30/2022: Pulmonary Function Test Result Requesting Provider Duchene Indications: Asthma Interpretation Spirometry: There is no airflow limitation. There is no significant bronchodilator response. Lung Volumes: Normal lung volumes. Diffusion Capacity: Normal diffusion Airway Pressure: Normal airways resistance Impression Normal pulmonary function testing. Clinical Correlation therefore is recommended. Anesthesia Assessment and Plan Anesthesia History Personal History: No History of Anesthesia Complications Family History: No Family History of Anesthesia Complications Exercise Tolerance Exercise Tolerance: Metabolic Equivalents>4 Pertinent Negatives Pertinent Negatives: No Symptoms of GERD Cardiac & Pulmonary Exam Cardiac Exam: Normal S1/S2 Heart Sounds Pulmonary Exam: Clear Bilateral Breath Sounds Implantable Cardiac Device Does patient have a Pacemaker or an ICD?: No Airway Exam Known Difficult Airway: No Mallampati Class: 2 Mouth Opening: Normal (> 3cm) Thyromental Distance: Greater than 3 cm Neck Range of Motion: Full ROM Neck Circumference: Normal Teeth Condition: Normal Dentition ASA Classification ASA Score: ASA 2 Emergency Case?: No NPO Status NPO Status: NPO Clears >2 hours, Solids >8 hours Anesthesia Plan Resuscitation Status: Full Code Anesthesia Technique: General Anesthesia Airway Planned: Natural Airway Monitors Used: Standard Monitors
[2024-02-15 08:52] VITALS: BP 115/61; PULSE 68; RESP 16; TEMP 36.2; O2SAT 97
--- NOTE | 2024-02-15 08:58 | W.ANESPOSTOP ---
Postoperative Evaluation Date, Time and Location Date Performed: 02/15/24 Time Performed: 08:58 Patient Location: Day Surgery Unit Vital Signs Most Recent Imported Vital Signs: Most Recent Vital Signs Temp Pulse Resp BP Pulse Ox 36.2 C L 74 16 146/71 H 98 02/15/24 07:27 02/15/24 07:27 02/15/24 07:27 02/15/24 07:27 02/15/24 07:27 Pain Score Most Recent Pain Score: Most Recent Pain Score Pain Level 0 02/15/24 07:27 Assessment Mental Status: Awake (Alert & Oriented to Patient Baseline) Airway and Respiratory Function: Patent airway with normal (patient baseline) respiratory exam Cardiovascular Function: Hemodynamically Stable Hydration Status: Adequately Hydrated Nausea & Vomiting: No Nausea or Vomiting Pain: Pt. Denies Any Pain Peripheral Nerve Block: Patient did not receive a nerve block
[2024-02-15 09:22] VITALS: BP 140/72; PULSE 64; RESP 18; TEMP 36.6; O2SAT 98
== END 2024-02-15 09:55 | disposition home or self-care (01) ==
LOC: SUR 07:05
PROVIDERS: PCP Nurse Practitioner Family; Visit Provider Surgery
PROC: 0DJD8ZZ Inspection of Lower Intestinal Tract, Via Natural or Artificial Opening Endoscopic (ICD-10-PCS; CPT 45378; principal; 2024-02-15 08:15)
DX: Z12.11 Encounter for screening for malignant neoplasm of colon (principal); K57.30 Diverticulosis of large intestine without perforation or abscess without bleeding
CPT/HCPCS: G0121; J2001; J2704

== ENCOUNTER 2024-02-22 11:54 | Outpatient (CLI) | payer MEDICARE, SELFPAY ==
--- NOTE | 2024-02-22 10:56 | DI.RAD_ITS ---
Exam(s) XR KNEE RT 2V AP,LAT EXAM: XR KNEE RT 2V AP,LAT CLINICAL HISTORY: ANNUAL F/U R TKA. TECHNIQUE: 2D digital imaging was performed. Two images were obtained. AP, lateral and oblique view s were obtained. COMPARISON: CR XR KNEE RT 3V AP,LAT,JOON from 01/03/2023 CR XR KNEE RT 1V from 03/08/2023 FINDINGS: BONES: There are stable post operative changes of a right total knee replacement present. No fractur e or dislocation. JOINTS: The orthopedic hardware is in good position. No evidence of hardware loosening. SOFT TISSUE: Vascular calcifications are present. IMPRESSION: Stable right total knee replacement. DATA REPOSITORY: RADIATION DOSE DELIVERED:
== END 2024-02-22 11:55 | disposition home or self-care (01) ==
LOC: DIORS 11:55
PROVIDERS: PCP Nurse Practitioner Family; Referring Provider Nurse Practitioner Family; Visit Provider Student in an Organized Health Care Education/Training Program
DX: Z47.1 Aftercare following joint replacement surgery; Z96.651 Presence of right artificial knee joint
CPT/HCPCS: 99213; 73560

== ENCOUNTER → 2024-04-09 09:13 | Outpatient (BNVA) | payer MEDICARE, SELFPAY | PROVIDERS: PCP Nurse Practitioner Family; Referring Provider Family Medicine; Visit Provider Physician Assistant Surgical | DX: J45.909 Unspecified asthma, uncomplicated (principal) | CPT/HCPCS: 99214 ==

== ENCOUNTER 2025-06-22 08:20 | Outpatient (CLI) | payer MEDICARE, SELFPAY ==
[2025-06-22 09:03] LABS: ALT 54 U/L (14-59); AST 52 U/L (15-37); Albumin 3.5 g/dL (3.4-5.0); Alkaline Phosphatase 119 U/L (46-116); Anion Gap 6.4 mmol/L (3-11); BUN 14 mg/dL (7-18); Bilirubin, Total 0.4 mg/dL (0.2-1.0); CO2 28.6 mmol/L (21.0-32.0); Calcium 8.9 mg/dL (8.5-10.1); Calculated LDL 77 mg/dL (<100); Chloride 104 mmol/L (98-107); Cholesterol 161 mg/dL (<200); Estimated GFR 66.26 (mL/min/1.73m2); Glucose 83 mg/dL (74-106); HDL Cholesterol 67 mg/dL (>or=50); Potassium 4.4 mmol/L (3.5-5.1); Sodium 139 mmol/L (136-145); Total Protein 7.9 g/dL (6.4-8.2); Triglyceride 86 mg/dL (<150)
== END 2025-06-22 08:21 | disposition home or self-care (01) ==
LOC: LBO 08:21
PROVIDERS: PCP Nurse Practitioner Family; Visit Provider Nurse Practitioner Family
DX: E78.5 Hyperlipidemia, unspecified (principal)
CPT/HCPCS: 36415; 80053; 80061; 83090

== ENCOUNTER 2025-06-24 10:26 | Outpatient (CLI) | payer MEDICARE, SELFPAY ==
[2025-06-24 11:16] LABS: ALT 56 U/L (14-59); AST 55 U/L (15-37); Albumin 3.5 g/dL (3.4-5.0); Alkaline Phosphatase 116 U/L (46-116); Bilirubin, Total 0.4 mg/dL (0.2-1.0); Calculated LDL 70 mg/dL (<100); Cholesterol 155 mg/dL (<200); HDL Cholesterol 63 mg/dL (>or=50); Total Protein 7.8 g/dL (6.4-8.2); Triglyceride 111 mg/dL (<150)
[2025-06-24 11:39] LABS: Bilirubin, Direct 0.1 mg/dL (0.0-0.2)
== END 2025-06-24 10:27 | disposition home or self-care (01) ==
PROVIDERS: PCP Nurse Practitioner Family; Visit Provider Nurse Practitioner Family
DX: E78.5 Hyperlipidemia, unspecified (principal)
CPT/HCPCS: 36415; 80061; 80076

== ENCOUNTER 2025-07-06 02:11 | Outpatient (CLI) | payer MEDICARE, SELFPAY ==
--- NOTE | 2025-07-06 | DI.US_ITS ---
Exam(s) US ABDOMEN LIMITED EXAM: US ABDOMEN LIMITED CLINICAL HISTORY: ELEVATED ALT MEASUREMENT R74.01 TECHNIQUE: Ultrasound abdomen performed using standard protocol. COMPARISON: No exams were available for comparison FINDINGS: Examination limited by bowel gas. PANCREAS: Normal where visualized. LIVER: There is limited visualization of the liver secondary to overlying bowel. Hepatopetal flow in the Portal Vein. The liver measures in 16 cm length. No evidence of a hepatic mass. GALLBLADDER:Status post cholecystectomy. BILIARY SYSTEM: Common bile duct measures < 7 mm. No intrahepatic biliary ductal dilation. RIGHT KIDNEY: Kidney is normal in size. No evidence of renal calculi. No evidence of hydronephrosis. There is a 2.0 x 2.8 x 3.3 cm simple cyst. No follow-up is recommended. ASCITES: None seen. IMPRESSION: 1. Exam somewhat limited due to overlying bowel gas. 2. No acute abnormality. 3. Status post cholecystectomy. DATA REPOSITORY:
== END 2025-07-06 02:31 ==
PROVIDERS: PCP Nurse Practitioner Family; Visit Provider Nurse Practitioner Family
DX: R74.01 Elevation of levels of liver transaminase levels (principal); Z90.5 Acquired absence of kidney
CPT/HCPCS: 76705